=== PATIENT | male | born 1975 | race Caucasian/White ===

== ENCOUNTER 2021-05-25 03:01 | Emergency (ER) | payer MEDICAID, OTHER ==
--- OUTSIDE RECORDS SUMMARY | 2021-05-25 03:07 | XMS REPORT | Clinical Summary ---
Author Author [facility] Organization [facility] Address Unknown Phone Unavailable Care Team Providers Care Tunnel Miner Name Role Phone Westley Santo MD PCP Allergies Not on File Medications Not on file Active Problems Not on file Social History Date Tobacco Use Types Packs/Day Years Used Never Assessed Sex Assigned at Date Recorded Not on file Last Filed Vital Signs Not on file Plan of Treatment Health Maintenance Due Date Last Done Comments Spirometry # 1973 Td/Tdap# 1973 COVID-19 Vaccine (1) 1985 Influenza Vaccine (#1) 2021 Pneumococcal Vaccine: Aged Out No longer eligib le based on patient's age to Pediatrics (0 to 5 Years) complete this topic and At-Risk Patients (6 to 64 Years) Results Not on filefrom Last 3 Months Insurance Type Payer Benefit Subscriber ID Effective Phone Address Plan / Dates Group [id number] 2018-P [employer] resent [id number] Benny Maxwell Personal/F Self 1975 [address] (Home) [place], [place] [address] Benny Maxwell Personal/F Self 1975 [address] (Home) [place], [place] [address] Advance Directives For more information, please contact: [phone] 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
--- OUTSIDE RECORDS SUMMARY | 2021-05-25 03:07 | XMS REPORT | Clinical Summary ---
Author Author [facility] Organization [facility] Address Unknown Phone Unavailable Care Team Providers Care Frit Mixer Name Role Phone Marcos Santillan RN PCP Unavailable Source Comments Some departments are not documenting in the electronic medical record. If you d o not see the information that you expected, contact Release of Information in [facility] Information Management department at [phone] for further assistan ce in locating additional records.[facility] Allergies Comments Active Allergy Reactions Severity Noted Date Paper tape Adhesive BLISTERS High 07/28/2020 Penicillins ANAPHYLAXIS High 07/27/2020 Medications End Date Status Medication Sig Dispensed Refills Start Date Active vit Take 1 0 calc,iron,folic ( capsule by VITAMIN PO) mouth daily. Active divalproex (DEPAKOTE ER) Take two 60 tablet 0 1 500 mg ER tablet tablets by 0 mouth at bedtime daily. Take with food. Active hydrOXYzine (ATARAX) 25 Take one 30 tablet 0 mg tablet tablet by 0 mouth every 6 hours as needed. Active traZODone (DESYREL) 50 mg Take one 30 tablet 0 tablet tablet by 0 mouth at bedtime as needed. Active nicotine (NICODERM CQ Apply one 28 patch 0 07/17 STEP 1) 21 mg/day patch to top 0 patchIndications: smoking of skin as cessation directed daily. Rotate patch location. Indications: stop smoking Active nicotine polacrilex Place one 220 each 0 (NICORETTE) 4 mg gum each inside 0 cheek (side of mouth) every 1 hour as needed. Chew to soften and park in mouth between lip and gum. May use 1 piece per hour, not to exceed 24 per day for 12 weeks. May be used longer, if needed. Active gabapentin (NEURONTIN) Take one 90 capsule 0 300 mg capsule capsule by 0 mouth three times daily. Active metFORMIN-ER (FORTAMET) Take one 30 tablet 0 500 mg extended release tablet by 0 tablet mouth daily. Active naproxen (NAPROSYN) 500 Take one 60 tablet 0 mg tablet tablet by 0 mouth twice daily as needed. Take with food. 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 Resolved Problems Problem Noted Date Resolved Date Alcohol poisoning 07/28/2020 08/01/2020 Intentional drug overdose 07/27/2020 08/01/2020 Surgical History Surgery Date Site/Laterality Comments HX BACK SURGERY NECK SURGERY HX TONSILLECTOMY Medical History Medical History Date Comments COPD (chronic obstructive pulmonary disease) (HCC) Seizure (HCC) DM (diabetes mellitus) (HCC) Psychiatric illness Spinal cord stimulator status placed 2017 Arthritis Social History Date Tobacco Use Types Packs/Day Years Used Current Every Day Smoker 1.5 Smokeless Tobacco: Chew Current User Comments Alcohol Use Standard Drinks/Week 1-1/2 gallon liquor Yes 0 (1 standard drink = 0.6 o z pure alcohol) Alcohol Habits Answer Date Recorded How often do you have a drink containing alcohol? No t asked How many drinks containing alcohol do you have on No t asked a typical day when you are drinking? How often do you have six or more drinks on one Not asked occasion? Comment: 1-1/2 gallon liquor 07/27/2020 Sex Assigned at Date Recorded Male 07/27/2020 11:43 PM ENGINE PILOT Last Filed Vital Signs Reading Time Taken Comments Vital Sign 130/70 08/01/2020 8:00 AM ENGINE PILOT Blood Pressure 89 08/01/2020 8:00 AM ENGINE PILOT Pulse 35.9 C (96.6 F) 08/01/2020 8:00 AM ENGINE PILOT Temperature - - Respiratory Rate 100% 08/01/2020 8:00 AM ENGINE PILOT Oxygen Saturation - - Inhaled Oxygen Concentration 86.2 kg (190 lb) 07/28/2020 12:32 AM ENGINE PILOT Weight 182.9 cm (6') 07/28/2020 12:32 AM ENGINE PILOT Height 25.77 07/28/2020 12:32 AM ENGINE PILOT Body Mass Index Plan of Treatment Health Maintenance Due Date Last Done Comments HIV SCREENING 1988 DTAP/TDAP VACCINES (1 - 1991 Tdap) HEPATITIS C SCREENING 1991 PHYSICAL (COMPREHENSIVE) 1991 EXAM INFLUENZA VACCINE 03/17/2021 Goals Goal Patient Associated Recent Progress Patient-Stat Aut hor Goal Type Problems ed? 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 necessary based on Dx
--- NOTE | 2021-05-25 03:11 | ED General ---
General Stated Complaint: SUBSTANCE ABUSE History of Present Illness Date Seen by Provider: May 25, 2021 Time Seen by Provider: 03:05 Initial Comments 45-year-old male presents because he was wanting to hurt himself. He reports he does not want to hurt himself right at this time. He is not sure what made he might hurt himself. He reports that he drank about a gallon of vodka yesterday and that his last drink was around 6:30 yesterday evening. Patient reports that he normally does not drink but a little bit of wine here and there. He is not sure what made him drink so much or why he was having feelings of wanting to hurt himself. He is having thoughts of wanting to shoot himself. He states it was stupid but wants to be evaluated by mental health. (RONN WEISS DO) Allergies and Home Medications Allergies Coded Allergies: Penicillins (Verified Allergy, Unknown, 05/25/21) Patient Home Medication List Home Medication List Reviewed: Yes (RONN WEISS DO) Review of Systems Review of Systems Constitutional: no symptoms reported EENTM: no symptoms reported Respiratory: no symptoms reported Cardiovascular: no symptoms reported Gastrointestinal: nausea Genitourinary: no symptoms reported Musculoskeletal: no symptoms reported Skin: no symptoms reported Psychiatric/Neurological: See HPI Hematologic/Lymphatic: No Symptoms Reported (RONN WEISS DO) Physical Exam Vital Signs Vital Signs - First Documented 05/25/21 03:04 Temp 37.2 Pulse 126 Resp 18 B/P (MAP) 169/94 (119) Pulse Ox 96 O2 Delivery Room Air (KWAME MCMILLAN DO) Vital Signs Capillary Refill : (RONN WEISS DO) Height, Weight, BMI Height: '" Weight: lbs. oz. kg; BMI Method: General Appearance: No Apparent Distress, Other (Unkept) HEENT: PERRL/EOMI Neck: Full Range of Motion Respiratory: Lungs Clear, Normal Breath Sounds Cardiovascular: Regular Rate, Rhythm, No Edema Gastrointestinal: Non Tender, Soft Extremity: Normal Capillary Refill, Normal Inspection, Normal Range of Motion Neurologic/Psychiatric: Alert, Oriented x3, Other (Patient with no active suicidal thoughts at this time) Skin: Normal Color, Warm/Dry (WEISS,RONN L DO) Progress/Results/Core Measures Suspected Sepsis SIRS Temperature: Pulse: Respiratory Rate: Laboratory Tests 05/25/21 03:18: White Blood Count 18.7H Blood Pressure / Mean: Laboratory Tests 05/25/21 03:18: Creatinine 0.74, Platelet Count 311, Total Bilirubin 0.9 (WEISSMAYNORR L DO) Results/Orders Lab Results Laboratory Tests Test 05/25/21 03:18 05/25/21 03:31 Range/Units White Blood Count 18.7 H 4.3-11.0 10^3/uL Red Blood Count 5.39 4.30-5.52 10^6/uL Hemoglobin 16.7 13.3-17.7 g/dL Hematocrit 49 40-54 % Mean Corpuscular Volume 90 80-99 fL Mean Corpuscular Hemoglobin 31 25-34 pg Mean Corpuscular Hemoglobin Concent 34 32-36 g/dL Red Cell Distribution Width 13.3 10.0-14.5 % Platelet Count 311 130-400 10^3/uL Mean Platelet Volume 9.7 9.0-12.2 fL Immature Granulocyte % (Auto) 1 % Neutrophils (%) (Auto) 85 H 42-75 % Lymphocytes (%) (Auto) 7 L 12-44 % Monocytes (%) (Auto) 6 0-12 % Eosinophils (%) (Auto) 0 0-10 % Basophils (%) (Auto) 1 0-10 % Neutrophils # (Auto) 15.9 H 1.8-7.8 X 10^3 Lymphocytes # (Auto) 1.3 1.0-4.0 X 10^3 Monocytes # (Auto) 1.0 0.0-1.0 X 10^3 Eosinophils # (Auto) 0.0 0.0-0.3 10^3/uL Basophils # (Auto) 0.2 H 0.0-0.1 10^3/uL Immature Granulocyte # (Auto) 0.2 H 0.0-0.1 10^3/uL Neutrophils % (Manual) 90 % Lymphocytes % (Manual) 4 % Monocytes % (Manual) 6 % Sodium Level 134 L 135-145 MMOL/L Potassium Level 4.7 3.6-5.0 MMOL/L Chloride Level 95 L 98-107 MMOL/L Carbon Dioxide Level 18 L 21-32 MMOL/L Anion Gap 21 H 5-14 MMOL/L Blood Urea Nitrogen 19 H 7-18 MG/DL Creatinine 0.74 0.60-1.30 MG/DL Estimat Glomerular Filtration Rate 113 BUN/Creatinine Ratio 26 Glucose Level 148 H 70-105 MG/DL Calcium Level 9.4 8.5-10.1 MG/DL Corrected Calcium 8.5-10.1 MG/DL Total Bilirubin 0.9 0.1-1.0 MG/DL Aspartate Amino Transf (AST/SGOT) 26 5-34 U/L Alanine Aminotransferase (ALT/SGPT) 31 0-55 U/L Alkaline Phosphatase 91 40-136 U/L Total Protein 7.8 6.4-8.2 GM/DL Albumin 4.7 H 3.2-4.5 GM/DL Salicylates Level < 0.3 L 5.0-20.0 MG/DL Acetaminophen Level < 10 L 10-30 UG/ML Serum Alcohol < 10 <10 MG/DL Urine Color YELLOW Urine Clarity SLIGHTLY CLOUDY Urine pH 5.5 5-9 Urine Specific [place] >=1.030 1.016-1.022 Urine Protein 1+ H NEGATIVE Urine Glucose (UA) NEGATIVE NEGATIVE Urine Ketones 3+ H NEGATIVE Urine Nitrite NEGATIVE NEGATIVE Urine Bilirubin 1+ H NEGATIVE Urine Urobilinogen 0.2 < = 1.0 MG/DL Urine Leukocyte Esterase NEGATIVE NEGATIVE Urine RBC (Auto) 1+ H NEGATIVE Urine RBC NONE /HPF Urine WBC 5-10 H /HPF Urine Squamous Epithelial Cells 5-10 /HPF Urine Crystals NONE /LPF Urine Bacteria MODERATE H /HPF Urine Casts PRESENT /LPF Urine Granular Casts 5-10 H /LPF Urine Mucus MODERATE H /LPF Urine Culture Indicated YES Urine Opiates Screen NEGATIVE NEGATIVE Urine Oxycodone Screen NEGATIVE NEGATIVE Urine Methadone Screen NEGATIVE NEGATIVE Urine Propoxyphene Screen NEGATIVE NEGATIVE Urine Barbiturates Screen NEGATIVE NEGATIVE Ur Tricyclic Antidepressants Screen NEGATIVE NEGATIVE Urine Phencyclidine Screen NEGATIVE NEGATIVE Urine Amphetamines Screen NEGATIVE NEGATIVE Urine Methamphetamines Screen NEGATIVE NEGATIVE Urine Benzodiazepines Screen NEGATIVE NEGATIVE Urine Cocaine Screen NEGATIVE NEGATIVE Urine Cannabinoids Screen NEGATIVE NEGATIVE (ROVENSTINE,KWAME L DO) My Orders Orders - ROVENSTINE,KWAME L DO Nicotine Patch (Nicoderm Patch) (05/25/21 09:15) (ROVENSTINE,KWAME L DO) Medications Given in ED Current Medications Medications Dose Ordered Sig/Cinda Route Start Time Stop Time Status Last Admin Dose Admin Nicotine 21 mg ONCE ONCE TD 05/25/21 09:15 05/25/21 09:16 DC 05/25/21 09:17 21 MG (KWAME MCMILLAN DO) Vital Signs/I&O 05/25/21 03:04 Temp 37.2 Pulse 126 Resp 18 B/P (MAP) 169/94 (119) Pulse Ox 96 O2 Delivery Room Air (KWAME MCMILLAN DO) Vital Signs/I&O Capillary Refill : (RONN WEISS DO) Progress Note : Progress Note took over pt care @ shift change. HPI, PMHx and psychological presentation discussed. PT was suicidal prior to arrival, not since presenting to the ER. States he drank a "'gallon of vodka" ....BAL= 0. NO distress, no threat to himself and cooperative w staff. Wishes to be screened and currently waiting for MH screening Patient stable for entire ER stay, screened by mental health and determined no need for admission. Safety contract written and patient to follow-up in 2 days for an appointment with mental health. Patient agrees and understands, no threat to himself currently. (KWAME MCMILLAN DO) ECG Initial ECG Impression Date: May 25, 2021 Initial ECG Impression Time: 03:33 Initial ECG Rate: 116 Initial ECG Rhythm: S.Tach Initial ECG Intervals: Normal Comment sinus tach (RONN WEISS DO) Departure Impression Primary Impression: Depression Disposition: 01 HOME, SELF-CARE Condition: Improved Departure-Patient Inst. Decision time for Depature: 13:39 (KWAME MCMILLAN DO) [facility] [place] Patient Instructions: Depression, Adult ED, SUICIDE CONTRACT Add. Discharge Instructions: Follow up with Mental Health as scheduled for you on 05/27/2021 @ 1100 RONN WEISS DO May 25, 2021 03:11 KWAME MCMILLAN DO May 25, 2021 08:05
[2021-05-25] MEDS ORDERED: ONDANSETRON 4 MG/2 ML (SDV) Z0FRAN ONE (03:15)
[2021-05-25] MEDS ORDERED: NS IV 1000 ML 1,000 ML ONE (03:15)
[2021-05-25] MEDS ORDERED: ONDANSETRON 4 MG/2 ML (SDV) Z0FRAN IVP ONE (03:15)
[2021-05-25] MEDS ORDERED: NS IV 1000 ML 1,000 ML IV SCH (03:15)
[2021-05-25 03:32] LABS: HEMATOCRIT 49 % (40-54); HEMOGLOBIN 16.7 g/dL (13.3-17.7); MEAN CORPUSCULAR HEMOGLOBIN 31 pg (25-34); MEAN CORPUSCULAR VOLUME 90 fL (80-99); WHITE BLOOD COUNT 18.7 10^3/uL (4.3-11.0)
[2021-05-25 03:33] LABS: BASOPHILS # (AUTO) 0.2 10^3/uL (0.0-0.1); BASOPHILS % (AUTO) 1 % (0-10); EOSINOPHILS % (AUTO) 0 % (0-10); LYMPHOCYTES # (AUTO) 1.3 X 10^3 (1.0-4.0); LYMPHOCYTES % (AUTO) 7 % (12-44); MEAN CORPUSCULAR HGB CONC 34 g/dL (32-36); MEAN PLATELET VOLUME 9.7 fL (9.0-12.2); MONOCYTES % (AUTO) 6 % (0-12); NEUTROPHILS # (AUTO) 15.9 X 10^3 (1.8-7.8); NEUTROPHILS % (AUTO) 85 % (42-75); PLATELET COUNT 311 10^3/uL (130-400)
[2021-05-25 03:39] LABS: BACTERIA,URINE MODERATE /HPF; BILIRUBIN,URINE 1+ (NEGATIVE); CLARITY,URINE SLIGHTLY CLOUDY; COLOR,URINE YELLOW; GLUCOSE, URINE (UA) NEGATIVE (NEGATIVE); KETONES,URINE 3+ (NEGATIVE); LEUKOCYTE ESTERASE ,URINE NEGATIVE (NEGATIVE); NITRITE,URINE NEGATIVE (NEGATIVE); PH,URINE 5.5 (5-9); PROTEIN,URINE 1+ (NEGATIVE)
[2021-05-25 03:43] LABS: AMPHETAMINE SCREEN, URINE NEGATIVE (NEGATIVE); BARBITURATE SCREEN URINE NEGATIVE (NEGATIVE); BENZODIAZEPINES SCREEN URINE NEGATIVE (NEGATIVE); CANNABINOID SCREEN, URINE NEGATIVE (NEGATIVE); COCAINE SCREEN URINE NEGATIVE (NEGATIVE); METHADONE STAT NEGATIVE (NEGATIVE); METHAMPHETAMINE SCREEN URINE S NEGATIVE (NEGATIVE); OPIATE SCREEN URINE NEGATIVE (NEGATIVE); TRICYCLIC ANTIDEPRESSANTS SCRE NEGATIVE (NEGATIVE)
[2021-05-25 03:44] LABS: OXYCODONE STAT NEGATIVE (NEGATIVE); PROPOXYPHENE STAT NEGATIVE (NEGATIVE)
[2021-05-25 03:52] LABS: ALANINE AMINOTRANSFERASE 31 U/L (0-55); ALBUMIN 4.7 GM/DL (3.2-4.5); ALKALINE PHOSPHATASE 91 U/L (40-136); BILIRUBIN,TOTAL 0.9 MG/DL (0.1-1.0); BUN/CREATININE RATIO 26; CALCIUM 9.4 MG/DL (8.5-10.1); CARBON DIOXIDE 18 MMOL/L (21-32); CHLORIDE 95 MMOL/L (98-107); CREATININE SERUM 0.74 MG/DL (0.60-1.30); GFR ESTIMATED 113; GLUCOSE 148 MG/DL (70-105); POTASSIUM 4.7 MMOL/L (3.6-5.0); SALICYLATE < 0.3 MG/DL (5.0-20.0); SODIUM 134 MMOL/L (135-145); TOTAL PROTEIN 7.8 GM/DL (6.4-8.2)
[2021-05-25 03:53] LABS: ACETAMINOPHEN < 10 UG/ML (10-30); LYMPHOCYTES % (MANUAL) 4 %; MONOCYTES % (MANUAL) 6 %; NEUTROPHILS % (MANUAL) 90 %
[2021-05-25] MEDS ORDERED: NICOTINE 21 MG (NICODERM) PATCH TD ONE (09:15)
[2021-05-25 13:45] VITALS: BP 169/94
== END 2021-05-25 13:45 | disposition home or self-care (01) ==
LOC: ER FS 03:02
DX: F32.9 Major depressive disorder, single episode, unspecified (principal)
CPT/HCPCS: 36415; 80053; 80306; 81000; 85007; 85027; 87088; 93005; 93041; 99284; G0480 ×3; 80320; 80329

== ENCOUNTER 2021-05-26 11:35 | Emergency (ER) | payer MEDICAID ==
[~2021-05-26] VITALS: Ht 182.9 cm; Wt 81.6 kg
--- NOTE | 2021-05-26 11:44 | ED EENT ---
History of Present Illness General Chief Complaint: Oral/Throat Problems Stated Complaint: MOUTH BLISTERS Nursing Triage Note: PT TO ROOM FS02 [facility]IA [facility] WITH C/O A BLISTER IN HIS MOUTH. History of Present Illness Date Seen by Provider: May 26, 2021 Time Seen by Provider: 11:40 Initial Comments 45-year-old man presents with complaints of mouth sores. He reports that he noticed some last night. Patient was here yesterday for psych evaluation and supposed that intoxication. However patient had a 0 alcohol level despite the claiming he drank "gallons of vodka" patient seems to be malingering with really nonspecific complaints. Allergies and Home Medications Allergies Coded Allergies: Penicillins (Verified Allergy, Unknown, 05/25/21) Patient Home Medication List Home Medication List Reviewed: Yes Review of Systems Review of Systems Constitutional: no symptoms reported Eyes: No Symptoms Reported Mouth: see HPI Respiratory: no symptoms reported Cardiovascular: no symptoms reported Musculoskeletal: no symptoms reported Skin: no symptoms reported Physical Exam Vital Signs Vital Signs - First Documented 05/26/21 11:36 Temp 36.3 Pulse 124 Resp 17 B/P (MAP) 153/99 (117) O2 Delivery Room Air Height, Weight, BMI Height: '" Weight: lbs. oz. kg; 24.00 BMI Method: General Appearance: WD/WN, no apparent distress Mouth/Throat: other (Some mild stomatitis/ulcers on lip and tongue) Cardiovascular: normal peripheral pulses, regular rate, rhythm Respiratory: lungs clear, normal breath sounds Gastrointestinal: non tender, soft Neurologic/Psychiatric: no motor/sensory deficits, alert, normal mood/affect, oriented x 3 Skin: normal color, warm/dry Progress/Results/Core Measures Results/Orders Vital Signs/I&O 05/26/21 11:36 Temp 36.3 Pulse 124 Resp 17 B/P (MAP) 153/99 (117) O2 Delivery Room Air Blood Pressure Mean: 117 Progress Progress Note : Progress Note Patient with stomatitis. Patient seems to have an underlying malingering or psychiatric issue bringing him to the ER for the last 2 days when he was seen by me both times. Suspect maybe has some mild schizophrenia or other psychiatric illness. Patient was evaluated by behavioral health yesterday and has outpatient appointment set up for next week. Patient can use Maalox swish and spit for his stomatitis. Patient stable and discharged home Departure Impression Primary Impression: Stomatitis and mucositis, unspecified Disposition: HOME, SELF-CARE Condition: Stable Departure-Patient Inst. Referrals: NO,LOCAL PHYSICIAN (PCP/Family) Primary Care Physician Patient Instructions: Mouth Sores Add. Discharge Instructions: Please rinse your mouth with Maalox and spit. Follow-up with your primary care provider if lesions continue to spread for further outpatient management All discharge instructions reviewed with patient and/or family. Voiced understanding. RONN WEISS DO May 26, 2021 11:44
[2021-05-26 11:49] VITALS: BP 137/88
== END 2021-05-26 11:49 | disposition home or self-care (01) ==
LOC: EDUNIT# 11:35 → ER FS 11:36
DX: K12.1 Other forms of stomatitis (principal); K12.30 Oral mucositis (ulcerative), unspecified
CPT/HCPCS: 99283